=== PATIENT | male | born 1950 | race Caucasian/White ===

== ENCOUNTER 2017-09-30 19:15 | Emergency (ER) | payer OTHER ==
[~2017-09-30] VITALS: Ht 180.3 cm; Wt 92.3 kg
[2017-09-30 19:23] VITALS: BP 194/99; PULSE 109; RESP 18; TEMP 98.6; O2SAT 94
[2017-09-30] MEDS ORDERED: SODIUM CHLORIDE 0.9% FLUSH 10 ML FLUSH IVF PRN (20:30)
[2017-09-30] MEDS ORDERED: methylPREDNISolone SOD SUCC 125 MG/2 ML VIAL IV PUSH ONE (20:30)
--- NOTE | 2017-09-30 20:30 | PD ---
HPI Chief Complaint: Hypertension Time Seen by Provider: 20:15 Travel History International Travel<30 days: No Contact w/Intl Traveler<30days: No Traveled to known affect area: No History of Present Illness HPI The patient is a 67-year-old male that came in stating his blood pressure "felt high". He did not take his blood pressure at home. He states he went to a walk -in clinic where he has been treated by a cough for 3 weeks with an antibiotic, prednisone and apparently Tessalon Perles without relief. The walk-in clinic: We go the emergency department because his pressure was elevated. He does have a history of what is probably a renal cell carcinoma and is being worked up by Dr. Mejía. He does not take hypertensive medications. He does smoke 2-3 cigars a week, mostly on the weekend. He can feel wheezes at home. He has been off prednisone for about a week. The antibiotic may have been doxycycline , he took this antibiotic twice daily for 7-10 days. PFSH Past Medical History Neurologic: Yes (CHRONIC BACK PAIN) Past Surgical History Tonsillectomy: Yes Social History Alcohol Use: Yes (occasional) Tobacco Use: Yes (cigars) Allergies-Medications (Allergen,Severity, Reaction): Coded Allergies: No Known Allergies (Verified Adverse Reaction, Unknown, 09/30/17) Reported Meds & Prescriptions Reported Meds & Active Scripts Active Proair Hfa 8.5 GM Inh (Albuterol Sulfate) 90 Mcg/Act Aer 2 Puff INH Q4-6H PRN 108 mcg/actuation Prednisone 20 Mg Tab 20 Mg PO BID 7 Days Reported Xanax (Alprazolam) 0.5 Mg Tab 0.5 Mg PO Q8H PRN Review of Systems Except as stated in HPI: all other systems reviewed are Neg Physical Exam Narrative GENERAL: The patient is alert, oriented 3 in minimal respiratory distress. His heart rate is 109 and blood pressure 194/99 but the rest of vital signs are normal. Oximetry is 94%. SKIN: Focused skin assessment warm/dry. HEAD: Atraumatic. Normocephalic. EYES: Pupils equal and round. No scleral icterus. No injection or drainage. ENT: No nasal bleeding or discharge. Mucous membranes pink and moist. NECK: Trachea midline. No JVD. CARDIOVASCULAR: Regular rate and rhythm. No murmur appreciated. RESPIRATORY: No accessory muscle use. Bilateral wheezes and rhonchi are heard in all lung yang. Breath sounds equal bilaterally. GASTROINTESTINAL: Abdomen soft, non-tender, nondistended. Hepatic and splenic margins not palpable. MUSCULOSKELETAL: No obvious deformities. No clubbing. No cyanosis. No edema. NEUROLOGICAL: Awake and alert. No obvious cranial nerve deficits. Motor grossly within normal limits. Normal speech. PSYCHIATRIC: Appropriate mood and affect; insight and judgment normal. Data Data Last Documented VS Vital Signs Date Time Temp Pulse Resp B/P (MAP) Pulse Ox O2 Delivery O2 Flow Rate FiO2 09/30/17 21:41 119 18 150/81 (104) 93 Room Air 09/30/17 20:41 2.00 09/30/17 19:23 98.6 Orders Orders Complete Blood Count With Diff (09/30/17 20:25) Basic Metabolic Panel (Bmp) (09/30/17 20:25) Urinalysis - C+S If Indicated (09/30/17 20:25) Iv Access Insert/Monitor (09/30/17 20:25) Ecg Monitoring (09/30/17 20:25) Oximetry (09/30/17 20:25) Oxygen Administration (09/30/17 20:25) Chest, Pa & Lat (09/30/17 20:25) Sodium Chloride 0.9% Flush (Ns Flush) (09/30/17 20:30) Methylprednisolone So Succ Inj (Solumedr (09/30/17 20:30) Albuterol-Ipratropium Neb (Duoneb Neb) (09/30/17 20:30) Influenzae A/B Antigen (09/30/17 20:30) Hydralazine Inj (Apresoline Inj) (09/30/17 20:45) Arterial Blood Gas (Abg) (09/30/17 ) Enalaprilat Inj (Vasotec Inj) (09/30/17 21:30) Labs Laboratory Tests Test 09/30/17 20:30 09/30/17 21:55 White Blood Count 4.4 TH/MM3 Red Blood Count 5.18 MIL/MM3 Hemoglobin 15.8 GM/DL Hematocrit 48.7 % Mean Corpuscular Volume 94.1 FL Mean Corpuscular Hemoglobin 30.4 PG Mean Corpuscular Hemoglobin Concent 32.4 % Red Cell Distribution Width 13.9 % Platelet Count 159 TH/MM3 Mean Platelet Volume 8.4 FL Neutrophils (%) (Auto) 71.6 % Lymphocytes (%) (Auto) 13.5 % Monocytes (%) (Auto) 13.6 % Eosinophils (%) (Auto) 0.8 % Basophils (%) (Auto) 0.5 % Neutrophils # (Auto) 3.2 TH/MM3 Lymphocytes # (Auto) 0.6 TH/MM3 Monocytes # (Auto) 0.6 TH/MM3 Eosinophils # (Auto) 0.0 TH/MM3 Basophils # (Auto) 0.0 TH/MM3 CBC Comment DIFF FINAL Differential Comment Blood Urea Nitrogen 19 MG/DL Creatinine 1.10 MG/DL Random Glucose 72 MG/DL Calcium Level 8.6 MG/DL Sodium Level 134 MEQ/L Potassium Level 3.6 MEQ/L Chloride Level 100 MEQ/L Carbon Dioxide Level 26.8 MEQ/L Anion Gap 7 MEQ/L Estimat Glomerular Filtration Rate 67 ML/MIN Blood Gas Puncture Site RT RADIAL Blood Gas Patient Temperature 98.6 Blood Gas HCO3 23 mmol/L Blood Gas Base Excess -0.3 mmol/L Blood Gas Oxygen Saturation 91 % Arterial Blood pH 7.50 Arterial Blood Partial Pressure CO2 29 mmHG Arterial Blood Partial Pressure O2 63 mmHG Arterial Blood Oxygen Content 19.7 Vol % Arterial Blood Carboxyhemoglobin 1.7 % Arterial Blood Methemoglobin 1.2 % Blood Gas Hemoglobin 15.4 G/DL Blood Gas Inspired Oxygen 21 % MDM Medical Decision Making Medical Screen Exam Complete: Yes Emergency Medical Condition: Yes Medical Record Reviewed: Yes Interpretation(s) The influenza A/B antigen is positive for flu B antigen. The CBC is normal. The basic metabolic profile shows a BUN of 19, GFR of 67 and sodium 134 but is otherwise normal. The arterial blood gases show pH 7.5, CO2 29, PO2 63, O2 sat 91%. Differential Diagnosis Bronchitis, pneumonia, hypoxemia, bronchospasm, anemia, electrolyte disorder Narrative Course The patient has bronchitis with bronchospasm. He is barely within the normal range on the blood gases. His white count of 4400 suggest viral etiology and he is positive for influenza B. Diagnosis Primary Impression: Influenza B Additional Impression: Bronchitis with bronchospasm Additional Instructions: As we discussed, you do have bronchitis which is giving her difficulty with breathing. If this gets worse we will be glad to see you again in the emergency department for reevaluation. Follow-up with your primary care physician, hopefully this week. Med/Other Pt SpecificInfo: Prescription(s) given Scripts Albuterol 8.5 GM Inh (Proair Hfa 8.5 GM Inh) 90 Mcg/Act Aer 2 PUFF INH Q4-6H Y for SHORTNESS OF BREATH, #1 INHALER 0 Refills 108 mcg/actuation Prov: Francesco Paredes MD 09/30/17 Prednisone (Prednisone) 20 Mg Tab 20 MG PO BID for 7 Days, #14 TAB 0 Refills Prov: Francesco Paredes MD 09/30/17 Disposition: 01 DISCHARGE HOME Condition: Stable Francesco Paredes MD Sep 30, 2017 20:30
[2017-09-30 20:41] VITALS: BP_SYST 172; BP_SYST 174; BP_DIAS 102; BP_DIAS 104; PULSE 106; RESP 18; O2SAT 95
[2017-09-30] MEDS: RESP: ALBUTEROL 2.5 MG/IPRATROPIUM 0.5 MG NEB (SCH) INH (20:43)
[2017-09-30] MEDS ORDERED: hydrALAZINE HCL 20 MG/ML VIAL IV PUSH ONE ×2 (20:45→21:30)
[2017-09-30] MEDS ORDERED: ALPR.5 PO (20:49)
[2017-09-30 20:59] VITALS: BP 175/97; PULSE 112; RESP 18; O2SAT 95
[2017-09-30 21:02] VITALS: BP 168/86; PULSE 115; RESP 18
[2017-09-30 21:04] LABS: CALCIUM 8.6 MG/DL (8.5-10.1)
[2017-09-30 21:05] LABS: BICARBONATE 26.8 MEQ/L (21.0-32.0)
[2017-09-30 21:08] LABS: AUTOMATED NEUTROPHIL # 3.2 TH/MM3 (1.8-7.7); BASOPHIL % 0.5 % (0.0-2.0); CREATININE 1.1 MG/DL (0.60-1.30); EOSINOPHIL % 0.8 % (0.0-4.0); HEMATOCRIT 48.7 % (39.0-51.0); HEMOGLOBIN 15.8 GM/DL (13.0-17.0); LYMPH % 13.5 % (9.0-44.0); LYMPHOCYTE # 0.6 TH/MM3 (1.0-4.8); MEAN CELL VOLUME 94.1 FL (80.0-100.0); MEAN CORPUSCULAR HEMOGLOBIN 30.4 PG (27.0-34.0); MEAN CORPUSCULAR HGB CONC 32.4 % (32.0-36.0); MEAN PLATELET VOLUME 8.4 FL (7.0-11.0); MONO % 13.6 % (0.0-8.0); MONOCYTE # 0.6 TH/MM3 (0-0.9); NEUT % 71.6 % (16.0-70.0); PLATELET COUNT 159 TH/MM3 (150-450); RED BLOOD COUNT 5.18 MIL/MM3 (4.50-5.90); RED CELL DISTRIBUTION WIDTH 13.9 % (11.6-17.2); WHITE BLOOD COUNT 4.4 TH/MM3 (4.0-11.0)
[2017-09-30] MEDS ORDERED: PRED20 PO (21:16)
[2017-09-30] MEDS ORDERED: ALBUAER3 INH (21:19)
[2017-09-30] MEDS ORDERED: ENALAPRILAT 2.5 MG/2 ML VIAL IV PUSH ONE (21:30)
--- NOTE | 2017-09-30 21:37 | RADRPT ---
EXAM DATE/TIME: 09/30/2017 20:36 [facility] COMPARISON: No previous studies available for comparison. INDICATIONS : Shortness of breath. Cough. MEDICAL HISTORY : Hypertension. Bronchitis. SURGICAL HISTORY : None. ENCOUNTER: Initial ACUITY: 1 week PAIN SCORE: 0/10 LOCATION: Bilateral chest FINDINGS: PA and lateral views of the chest demonstrate the lungs to be symmetrically aerated without evidence of mass, infiltrate or effusion. The cardiomediastinal contours are unremarkable. Osseous structure s are intact. CONCLUSION: No acute disease. Wayne Jerry MD on September 30, 2017 at 21:35 Board Certified Radiologist. This report was verified electronically.
[2017-09-30 21:41] VITALS: BP 150/81; PULSE 119; RESP 18; O2SAT 93
[2017-09-30 22:36] VITALS: BP 128/60; TEMP 99.1
== END 2017-09-30 22:38 | disposition home or self-care (01) ==
LOC: PHED 19:15
DX: J10.1 Influenza due to other identified influenza virus with other respiratory manifestations (principal); J98.01 Acute bronchospasm; J40 Bronchitis, not specified as acute or chronic; Z72.0 Tobacco use
CPT/HCPCS: 36600; 71046; 80048; 82805; 85025; 87804; 94640; 94664; 96374; 96375; 99284; J0360; J2930

== ENCOUNTER → 2017-10-28 | Outpatient (CLI) | payer OTHER ==
[~2017-10-28] VITALS: Ht 180.3 cm; Wt 92.7 kg
[~2017-10-28] MED LIST: ALBUAER3 INH; ALPR.5 PO; CHLORHEXIDINE GLUCONATE 2 % 1 PACK (2 CLOTHS) TOPICAL PRN; GLYCOPYRROLATE 1 MG/5 ML SYRINGE IV PUSH ONE; IBUP200C PO; LACTATED RINGER'S 1000 ML IV PRN; LIDOCAINE HCL 1% PF 5 ML SYRINGE OTHER ONE; METOPROLOL TARTRATE 25 MG TAB PO PRN; POVIDONE IODINE 5% (ANTISEPSIS KIT) 4 APPLICATIONS EACH NARE PRN; PRED20 PO; PROPOFOL 200 MG/20 ML AMP IV ONE; SODIUM CHLORID 0.9% 500 ML IV PRN; SOMA250T PO; ZOVI400T PO
--- NOTE | 2017-10-28 10:05 | EKG ---
Date Performed: 10/28/2017 Time Performed: 09:35:33 PTAGE: 67 years EKG: Sinus rhythm BORDERLINE LEFT AXIS DEVIATION RIGHT BUNDLE BRANCH BLOCK MINIMAL VOLTAGE CRITERIA FOR LVH, CONSIDER NORMAL VARIANT ABNORMAL ECG PREVIOUS TRACING : 01/27/2009 18.19 No significant change from previous tracing noted. DOCTOR: Gary King Interpretating Date/Time 10/28/2017 10:04:44
--- NOTE | 2017-10-28 12:48 | PD.PROCEDR ---
GI Procedure PROCEDURE PERFORMED EUS with FNA INDICATION FOR PROCEDURE Pancreatic mass PROCEDURE: The procedure, risks and benefits were discussed with Patient/POA and informed consent was obtained. Anesthesia sedated Patient with Diprivan. Patient was placed in the left lateral decubitus position. Endoscopic ultrasound: The Pentax videoscope was introduced through the oropharynx and advanced to the stomach FINDINGS: The pancreatic parenchyma appeared to be diffusely lobular and this is of unclear significance with a normal pancreatic duct but towards the proximal portion of the pancreatic body there was mildly hypo-echoic lesion measuring about 1.2 x 1.4 cm with distinct borders no infiltration no adjacent lymphadenopathy FNA was performed with good return Otherwise unremarkable ESTIMATED BLOOD LOSS: None SPECIMENS REMOVED: Pancreatic mass biopsy COMPLICATIONS: None IMPRESSION: Mildly hypoechoic pancreatic body mass measuring 1.2 x 1.4 cm PLAN: Await biopsies Await PET scan Follow-up in 3 weeks Further recommendations she will depend on the above results Jim Horvath MD Oct 28, 2017 12:48
[2017-10-28 13:00] VITALS: BP 143/92; PULSE 66; RESP 18; TEMP 97.4; O2SAT 96
== END ==
LOC: HEND 09:13
PROVIDERS: ATTEND Internal Medicine Gastroenterology
DX: K86.9 Disease of pancreas, unspecified (principal); I45.10 Unspecified right bundle-branch block; I10 Essential (primary) hypertension
CPT/HCPCS: 43242; 88173; 88305; 93005